=== PATIENT | male | born 1965 | race Caucasian/White ===

== ENCOUNTER 2024-06-08 17:19 | Emergency (ER) | payer OTHER, SELFPAY ==
[2024-06-08 17:23] VITALS: BP 181/100; BMI 40.7
--- NOTE | 2024-06-08 18:33 | ED.GENMED ---
History of Present Illness
<Jennifer Mosley PA-C - Last Filed: 06/08/24 21:36>
General
Chief Complaint: Blood Pressure Problem
Source: patient
Exam Limitations: none
Time Seen by Provider: 06/08/24 18:30
Nursing documentation reviewed up to this point in time: agreed with
History of Present Illness
History of Present Illness:
59-year-old male with past medical history of COPD, CHF, pacemaker, presents emergency department today with concerns of chest pain and shortness of breath. [facility] when they noted that his blood pressure
was too high to be process and so he was sent to the emergency department for further evaluation. Patient states that he started having chest pain and shortness of breath that started last night. He states that the chest pain is constant. He
notes worsening shortness of breath with exertion. 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 He is at home medications include Entresto, Coreg, Eliquis, and
Jardiance.
Past History
<Jennifer Mosley PA-C - Last Filed: 06/08/24 21:36>
Past History
ED Past Medical History: Asthma, CHF, HTN, Hypercholesterolemia, IDDM, MS and Other (Umbilical hernia, MRSA, STAPH infection, Ulcers, States he as told that he has Leukemia)
ED Past Surgical History: Cardiac (pacemaker) and Orthopedic (Left elbow ORIF)
Social History
Tobacco: Non-smoker
Alcohol: None
Personal: Single
Living: alone
Review of Systems
<Jennifer Mosley PA-C - Last Filed: 06/08/24 21:36>
Review of Systems
All Other Systems: ROS reviewed and negative except as documented in HPI and ROS
Phy Exam
<Jennifer Mosley PA-C - Last Filed: 06/08/24 21:36>
Physical Exam
Physical Exam:
General: Patient is well appearing and in no acute distress; non-toxic
Skin: Warm and dry, no rashes or lesions
Head: Normocephalic, atraumatic
Eyes: Sclera non-icteric. EOMs intact.
Cardiac: Regular rate and rhythm, no tenderness palpation of the external chest wall
Peripheral Vascular: No lower extremity swelling or edema
Pulm: Normal respiratory effort, no wheezes, rales, rhonchi
Neuro: CN II-XII intact, no focal neurologic deficits.
Psychiatric: Appropriate mood and affect.
Course
<Jennifer Mosley PA-C - Last Filed: 06/08/24 21:36>
Orders/Labs/Results
Orders:
Orders
06/08/24 18:40
Cardiac Monitoring- Treatment ONCE
EKG- Treatment ONCE
06/08/24 18:41
Electrocardiogram (*1) Urgent
Reason for Study: Hypertension, Benign
CR Chest - 2 Views Urgent
Comment:
Reason For Exam: chest pain, shortness of breath
06/08/24 19:03
Nitroglycerin Ointment [Nitro-Bid] 1 inch TOPICAL NOW STA
06/08/24 19:12
Complete Blood Count/With Diff Urgent
Comprehensive Metabolic Panel Urgent
NT-proBNP Urgent
Troponin I Urgent
06/08/24 20:51
pacemaker [Interrogate Pacemaker- Treatment] ONCE
06/08/24 21:00
EKG [Electrocardiogram (*1)] Urgent
Reason for Study: Chest Pain
06/08/24 21:17
Troponin I Urgent
06/08/24 22:46
Acetaminophen [Tylenol] 1,000 mg PO NOW STA
Abnormal Lab Results
06/08/24
19:12
WBC 4.0 L 10^3/uL
(4.8-10.8)
RBC 3.63 L 10^6/uL
(4.70-6.10)
Hgb 11.6 L g/dL
(13.0-18.0)
Hct 33.5 L %
(39.0-52.0)
MCH 32.0 H pg
(27.0-31.0)
Plt Count 104 L 10^3/uL
(130-400)
Immature Gran % 1.0 H %
(0-0.5)
Glucose 168 H mg/dl
(70-99)
06/08/24 19:12
06/08/24 19:12
Vital Signs
Initial and Last Documented VS:
Initial Vital Signs
Temp Pulse Resp BP Pulse Ox
37.1 C 64 15 181/100 100
06/08/24 17:23 06/08/24 17:23 06/08/24 17:23 06/08/24 17:23 06/08/24 17:23
Last Documented Vital Signs
Temp Pulse Resp BP Pulse Ox
37.0 C 70 15 144/114 96
06/08/24 22:12 06/08/24 22:12 06/08/24 17:23 06/08/24 22:12 06/08/24 22:12
<Ganesh Islas MD - Last Filed: 06/08/24 23:10>
Orders/Labs/Results
Orders:
Orders
06/08/24 18:40
Cardiac Monitoring- Treatment ONCE
EKG- Treatment ONCE
06/08/24 18:41
Electrocardiogram (*1) Urgent
Reason for Study: Hypertension, Benign
CR Chest - 2 Views Urgent
Comment:
Reason For Exam: chest pain, shortness of breath
06/08/24 19:03
Nitroglycerin Ointment [Nitro-Bid] 1 inch TOPICAL NOW STA
06/08/24 19:12
Complete Blood Count/With Diff Urgent
Comprehensive Metabolic Panel Urgent
NT-proBNP Urgent
Troponin I Urgent
06/08/24 20:51
pacemaker [Interrogate Pacemaker- Treatment] ONCE
06/08/24 21:00
EKG [Electrocardiogram (*1)] Urgent
Reason for Study: Chest Pain
06/08/24 21:17
Troponin I Urgent
06/08/24 22:46
Acetaminophen [Tylenol] 1,000 mg PO NOW STA
Abnormal Lab Results
06/08/24
19:12
WBC 4.0 L 10^3/uL
(4.8-10.8)
RBC 3.63 L 10^6/uL
(4.70-6.10)
Hgb 11.6 L g/dL
(13.0-18.0)
Hct 33.5 L %
(39.0-52.0)
MCH 32.0 H pg
(27.0-31.0)
Plt Count 104 L 10^3/uL
(130-400)
Immature Gran % 1.0 H %
(0-0.5)
Glucose 168 H mg/dl
(70-99)
06/08/24 19:12
06/08/24 19:12
Vital Signs
Initial and Last Documented VS:
Initial Vital Signs
Temp Pulse Resp BP Pulse Ox
37.1 C 64 15 181/100 100
06/08/24 17:23 06/08/24 17:23 06/08/24 17:23 06/08/24 17:23 06/08/24 17:23
Last Documented Vital Signs
Temp Pulse Resp BP Pulse Ox
37.0 C 70 15 144/114 96
06/08/24 22:12 06/08/24 22:12 06/08/24 17:23 06/08/24 22:12 06/08/24 22:12
<Jennifer Mosley PA-C - Last Filed: 06/08/24 21:36>
MDM/Problems Addressed
Differential Diagnosis Includes:
See below
MDM/Problems Addressed:
NUMBER AND COMPLEXITY OF PROBLEMS ADDRESSED AT THE ENCOUNTER
� Chronic conditions affecting care: CHF, hypertension, hyperlipidemia
� Acute Exacerbation and/or Progression of Chronic Illness:
� Differential Diagnosis includes: Acute heart failure, ACS, costochondritis, musculoskeletal sprain/strain,
AMOUNT AND/OR COMPLEXITY OF DATA TO BE REVIEWED AND ANALYZED
� I performed an independent evaluation of and my interpretation is:
EKG:
X-rays: No acute cardiopulmonary disease
Laboratory Studies: CBC and CMP unremarkable
Other:
� Review of other/old records: Reviewed previous ER physician documentation from 12/07/2022, patient seen for chest pain, normal pacemaker interrogation and had 2 normal troponins
� Clinical information was obtained by an independent historian: none
� Prescriptions/Medications Considered but not given: none
� Further testing considered but not performed:
RISK OF COMPLICATIONS AND/OR MORBIDITY OR MORTALITY OF PATIENT MANAGEMENT
� Social determinants of health affecting care: none
� Discussion with other providers: ER attending
� Escalation of care including admission/observation vs risk of discharge considered:
59-year-old male presents emergency department today with concerns of elevated blood pressure, chest pain and shortness of breath. He does have a history of heart failure. Will send off for Troponin, proBNP, chest x-ray, EKG to assess for
potential heart failure versus ACS. Will give dose of nitroglycerin. Will interrogate pacemaker.
BP currently 150/94.
<Jennifer Mosley PA-C - Last Filed: 06/08/24 21:36>
*Critical Care Note
Total Time (30-74mins, 75-104mins- exclusive of procedures): Not Applicable
<Jennifer Mosley PA-C - Last Filed: 06/08/24 21:36>
Update Note
Update Note:
9:34 pm--repeat trop pending, Dr. Islas to follow up
ED Attending Note
<Jennifer Mosley PA-C - Last Filed: 06/08/24 21:36>
-
Portions of this chart may have been created with voice recognition software.� Occasional wrong word or��sound alike� substitutions may have occurred due to the inherent limitations of voice recognition software.
<Ganesh Islas MD - Last Filed: 06/08/24 23:10>
ED Attending Note
Patient seen and examined by attending physician: Yes
ED Attending Note:
I have seen and evaluated the patient with a [id number] encounter. I have spoken to the advance practicer provider and involved in the medical history, the physical exam, medical decision making.
Evaluation and management service: agree unless noted differently below.
Results interpretation: agree unless noted differently below.
Focused HPI: 59-year-old male with a past medical history of hypertension, CHF, diabetes, pacemaker who presents to the emergency department from senior living for hypertension. Patient was arrested today and said to be incarcerated and during intake
assessment was found to be markedly hypertensive and was sent to the ER for evaluation. Patient reports he has had some mild chest discomfort for the past 24 hours. He says he feels mildly short of breath. He has not noticed any marked weight
gain or leg swelling. No coughing. No orthopnea. He says he has been compliant with all his medications including his Coreg which she takes for his blood pressure.
Physical exam: Hypertensive to 181/100; otherwise normal vitals. He has trace edema at the ankles. Lungs are clear to auscultation. Regular rate no cardiac rubs gallops or murmurs appreciated. He has no JVD.
Medical Decision Makin-year-old male presents for evaluation of hypertension. On review of systems he does report some mild chest discomfort for the past 24 hours as well as some increased shortness of breath. He says he has been compliant
with his blood pressure medicine without any missed doses. Labs sent off including a CBC which shows mild but stable pancytopenia. His CMP shows no clinically significant abnormalities. He had serial troponins which were negative. His proBNP is
marginal. Chest x-ray shows no acute signs of heart failure. He was treated with Nitropaste and his blood pressure significantly improved. Resting comfortably on clinical reassessment. Stable for discharge, follow-up in [facility] for blood
pressure checks.
Discharge Plan
Departure
Patient Disposition: Home (Routine Discharge)
Date of Disposition: 06/08/24
Time of Disposition: 23:10
Patient with high blood pressure during this ER visit?: Yes
Discharge Problem:
Hypertension
Instructions: BLOOD PRESSURE
Referrals:
[facility] [Family Provider] - Follow up in 2-3 days
Activity Restrictions/Additional Instructions:
Thank you for visiting the Emergency Department at [facility].
1. Please schedule a follow up appointment as directed. Call first thing tomorrow morning to make an appointment.
2. If indicated, please take your medications as instructed and indicated on discharge paperwork.
3. If any of your symptoms do not improve, or persist, or become more severe within 6-12 hours, please return to the emergency department for further care.
4. Please return to the emergency department if you develop a headache, neck pain/stiffness, fever greater than 100.4F, chest pain, shortness of breath, persistent nausea, vomiting, slurred speech, difficulty walking, numbness/tingling, weakness,
signs of infection or any other symptoms that are worrisome to you.
Please call [phone] if you have any questions.
Interventions
Interventions:
*Risk Screen - Suicide Last Done: 06/08/24 17:23
*General Assessment Last Done: 06/08/24 17:23
ED- Fall Risk Assessment Last Done: 06/08/24 17:29
*ED COVID-19 Vaccine History Last Done: 06/08/24 17:23
ED- Cardiac Assessment Last Done: 06/08/24 17:29
ED- Neurological Assessment Last Done: 06/08/24 17:29
ED- Pulmonary Assessment Last Done: 06/08/24 17:29
Discharge Date and Time
Print Language: BELGIAN
[2024-06-08] MEDS: NITRO-BID 1 INCH TOPICAL (19:28)
[2024-06-08 19:35] VITALS: BP 161/99
[2024-06-08 19:48] LABS: Hematocrit 33.5 % (39.0-52.0); Hemoglobin 11.6 g/dL (13.0-18.0); Mean Corp Hgb Conc. 34.6 g/dL (33.0-37.0); Mean Corpuscular Volume 92.3 fL (80.0-94.0); Platelet Count 104 10^3/uL (130-400); Red Blood Cell Count 3.63 10^6/uL (4.70-6.10)
[2024-06-08 19:56] LABS: NT-proBNP 1280 pg/ml; Troponin I 0.015 ng/ml
[2024-06-08 19:58] LABS: ALT (SGPT) 21 U/L (0-50); AST (SGOT) 20 U/L (17-59); Albumin 4.1 g/dl (3.5-5.0); Alkaline Phosphatase 59 U/L (38-126); Blood Urea Nitrogen 20 mg/dl (9-20); Calcium 10.2 mg/dl (8.4-10.2); Carbon Dioxide 27 mmol/L (22-30); Chloride 100 mmol/L (98-107); Estimated Creatinine Clearance > 125 ml/min; Glucose 168 mg/dl (70-99); Sodium 135 mmol/L (135-145); Total Bilirubin 0.8 mg/dl (0.2-1.3); Total Protein 6.5 g/dl (6.3-8.2); eGFR > 60.00
[2024-06-08 20:25] VITALS: BP 150/94
[2024-06-08 21:11] LABS: % Basophils 0.7 % (0-2); % Eosinophils 1.5 % (0-6); % Lymphocytes 31.9 % (20.5-51.1); % Monocytes 8.9 % (1.7-9.3); Absolute Eosinophils 0.1 10^3/uL (0-0.7); Absolute Lymphocytes 1.3 10^3/uL (1.2-3.4); Absolute Monocytes 0.4 10^3/uL (0.1-0.6); Absolute Neutrophils 2.3 10^3/uL (1.4-6.5); Nucleated Red Blood Cells % 0 % (-)
[2024-06-08 22:03] LABS: Troponin I 0.017 ng/ml
[2024-06-08 22:12] VITALS: BP 144/114
[2024-06-08] MEDS: TYLENOL 1000 MG PO (23:04)
[2024-06-08 23:10] VITALS: BP 156/88
[2024-06-08 23:39] VITALS: BP 100/68
== END 2024-06-08 23:57 | disposition home or self-care (01) ==
LOC: EMR 17:19
PROVIDERS: Physician Assistant; EMERGENCY PHYSICIAN Emergency Medicine
DX: R07.89 Other chest pain (principal); R06.02 Shortness of breath; I11.0 Hypertensive heart disease with heart failure; I50.9 Heart failure, unspecified; E11.9 Type 2 diabetes mellitus without complications; K42.9 Umbilical hernia without obstruction or gangrene; E78.00 Pure hypercholesterolemia, unspecified; J44.89 Other specified chronic obstructive pulmonary disease; I25.2 Old myocardial infarction; Z95.0 Presence of cardiac pacemaker; Z86.14 Personal history of Methicillin resistant Staphylococcus aureus infection; Z85.6 Personal history of leukemia; Z79.01 Long term (current) use of anticoagulants; Z79.899 Other long term (current) drug therapy; Z79.4 Long term (current) use of insulin
CPT/HCPCS: 99285; 93288; 71046; 80053; 83880; 84484; 85025; 93005